=== PATIENT | male | born 1985 | race Caucasian/White ===

== ENCOUNTER 2018-12-06 15:24 | Emergency (ER) | payer OTHER ==
[~2018-12-06] VITALS: Ht 165.1 cm; Wt 120.2 kg
[2018-12-06] MEDS ORDERED: OMEPRAZOLE20 MG PO (15:32)
[2018-12-06] MEDS ORDERED: HYDROCHLOROTHIA25 MG PO (15:32)
[2018-12-06] MEDS ORDERED: ASPIR-LOW81 MG PO (15:33)
[2018-12-06] MEDS ORDERED: ALPHA LIPOIC A300 MG PO (15:33)
--- NOTE | 2018-12-06 16:34 | EKG ---
[facility] [address] [facility] [place], [place] [address] Signed Sinus tachycardia Possible Inferior infarct , age undetermined Abnormal ECG No previous ECGs available Confirmed by ANDREI BLAIR DO ([id number]) on 12/06/2018 4:34:14 PM Electronically Signed By: ANDREI BLAIR DO 12/06/18 1634 PATIENT NAME: JILLIAN SHEPHERD Electrocardiogram DATE OF : 83 PHYSICIAN: ANDREI BLAIR DO REPORT #: [id number] REPORT IS CONFIDENTIAL AND NOT TO BE RELEASED WITHOUT AUTHORIZATION
== END 2018-12-06 20:38 | disposition home or self-care (01) ==
LOC: ED 15:24
DX: R07.89 Other chest pain (principal); Z79.82 Long term (current) use of aspirin
CPT/HCPCS: 71046; 80053; 84484; 85025; 85379; 93005; 93010; 96374; 99285-25; J1885